=== PATIENT | male | born 1995 | race Native Hawaiian/Other Pacific Islander ===

== ENCOUNTER 2021-03-19 18:31 | Emergency (ER) | payer OTHER | END 2021-03-19 20:32 | disposition home or self-care (01) | LOC: ED 18:31 | PROC: 0HQLXZZ Repair Left Lower Leg Skin, External Approach (ICD-10-PCS; principal; 2021-03-19) | DX: S81.012A Laceration without foreign body, left knee, initial encounter (principal); W29.8XXA Contact with other powered hand tools and household machinery, initial encounter; Y92.098 Other place in other non-institutional residence as the place of occurrence of the external cause | CPT/HCPCS: 90471; 90715; 99283; J2001 ==

== ENCOUNTER 2021-04-03 11:12 | Emergency (ER) | payer OTHER ==
[~2021-04-03] VITALS: Ht 182.9 cm; Wt 86.2 kg
[2021-04-03 11:20] VITALS: BP 124/77; TEMP 98.2
== END 2021-04-03 12:00 | disposition home or self-care (01) ==
LOC: ED 11:12
DX: Z48.02 Encounter for removal of sutures (principal)